=== PATIENT | male | born 1945 | race American Indian/Alaskan Native ===

== ENCOUNTER 2017-05-03 06:57 | Outpatient (CLI) | payer MEDICARE ==
--- NOTE | 2017-05-03 07:31 | XRay Report ---
ROUTINE CHEST, TWO VIEWS: HISTORY: Cough, COPD. No comparison. Previous CABG changes are suspected. The trachea, heart, mediastinal contour, lung vicente and bony thorax are unremarkable. IMPRESSION: No acute cardiopulmonary process identified.
== END 2017-05-03 06:58 | disposition home or self-care (01) ==
LOC: XRAY 06:57
PROVIDERS: ATTEND Internal Medicine
DX: J44.1 Chronic obstructive pulmonary disease with (acute) exacerbation (principal)
CPT/HCPCS: 71020